=== PATIENT | male | born 1990 | race Caucasian/White ===

== ENCOUNTER 2022-05-08 20:51 | Emergency (ER) | payer OTHER ==
[~2022-05-08] VITALS: Ht 170.2 cm; Wt 81.0 kg
[2022-05-08] MEDS ORDERED: IBUPROFEN 600MG TABLET PO ONE (21:15)
[2022-05-08] MEDS ORDERED: IBUP-2029 MT (21:43)
[2022-05-08 23:00] VITALS: BP 142/85
== END 2022-05-08 23:12 ==
LOC: ER 20:51
DX: S52.692A Other fracture of lower end of left ulna, initial encounter for closed fracture (principal); I10 Essential (primary) hypertension; Y04.0XXA Assault by unarmed brawl or fight, initial encounter; Y93.89 Activity, other specified; Y92.89 Other specified places as the place of occurrence of the external cause
CPT/HCPCS: 73100; 99283